=== PATIENT | female | born 1955 | race American Indian/Alaskan Native ===

== ENCOUNTER 2016-10-21 16:35 | Inpatient (IN) | payer MEDICAID ==
--- NOTE | 2016-10-21 17:34 | Emergency Department Report ---
Chief Complaint: Extremity Problem,Nontraumatic Stated Complaint: GENERAL WEAKNESS - HPI History of Present Illness: Patient here with multiple complaints including b/l leg pain x 8 weeks, seeing things that are not there. Patient is resident of unknown personal halfway. - Exam Vital Signs: Vital Signs 10/21/16 17:06 Temperature 99.5 F Pulse Rate 105 H Respiratory 20 Rate Blood Pressure 112/64 O2 Sat by Pulse 95 Oximetry Physical Exam: General: Slow to respond to questions. NAD. MSE screening note: Focused history and physical exam performed. Due to findings the following was ordered: ED Medical Decision Making - Medical Decision Making Patient to see MD in main ED. ED Disposition for MSE Condition: Stable
[2016-10-21 18:35] LABS: Basophils % (Auto) 0.7 % (0.0-1.8); Hematocrit 40.1 % (30.3-42.9); Hemoglobin 13.2 gm/dl (10.1-14.3); Mean Corpuscular HGB Conc 33 % (30-34); Mean Corpuscular Hemoglobin 31 pg (28-32); Mean Corpuscular Volume 93 fl (79-97); Platelet Count 134 K/mm3 (140-440); Red Blood Count 4.29 M/mm3 (3.65-5.03); Red Cell Distribution Width 13.7 % (13.2-15.2); White Blood Count 6.2 K/mm3 (4.5-11.0)
[2016-10-21 19:13] LABS: Alanine Aminotransferase 19 units/L (7-56); Albumin 3.7 g/dL (3.9-5); Albumin/Globulin Ratio 0.9 %; Alkaline Phosphatase 60 units/L (35-129); Bilirubin,Total 0.3 mg/dL (0.1-1.2); Blood Urea Nitrogen 9 mg/dL (7-17); Carbon Dioxide 25 mmol/L (22-30); Chloride 92.1 mmol/L (98-107); Glucose 148 mg/dL (65-100); Magnesium 2.2 mg/dL (1.7-2.3); Potassium 4.1 mmol/L (3.6-5.0); Sodium 133 mmol/L (137-145); Total Protein 7.9 g/dL (6.3-8.2)
[2016-10-21 19:16] LABS: Anion Gap 20 mmol/L
[2016-10-21 19:17] LABS: Valproate 94.1 ug/mL (50-100)
[2016-10-21 19:21] LABS: Salicylate < 0.3 mg/dL (2.8-20.0)
[2016-10-22] MEDS ORDERED: NACL 0.9% 1000 ML 1,000 ML IV ONE ×2 (02:31→04:15)
--- NOTE | 2016-10-22 03:56 | Emergency Department Report ---
HPI - General Chief Complaint: Extremity Problem,Nontraumatic Time Seen by Provider: 10/22/16 02:29 - HPI HPI: Room 5 The patient is a 60-year-old female presenting with a chief complaint of depression. The patient states she had suicidal ideation 1 month ago. Patient denies auditory or visual hallucinations. The patient has a flat affect and does not offer much information by way of history. Patient does not answer all questions. Patient does admit some occasional cough Location: Mental state Duration: 1 month Quality: Depression Severity: Moderate Modifying factors: [see above] Context: [see above] Mode of transportation: [not driving] ED Past Medical Hx - Past Medical History Hx Diabetes: Yes Hx Psychiatric Treatment: Yes (SCHIZOPHRENIA) Hx Asthma: Yes Additional medical history: HYPOTHYROIDISM. HIGH CHOLESTEROL - Family History Family history: no significant - Social History Smoking Status: Never Smoker Substance Use Type: None - Medications Home Medications: Home Medications Medication Instructions Recorded Confirmed Last Taken Type Aspirin [Aspirin BABY CHEW TAB] 81 mg PO QDAY 11/22/15 11/22/15 Unknown History Benztropine [Cogentin] 1 mg PO BID 11/22/15 11/22/15 Unknown History Divalproex [Depakote Dr] 1,000 mg PO QHS 11/22/15 11/22/15 Unknown History Docusate Sodium [Colace CAP] 200 mg PO BID 11/22/15 11/22/15 Unknown History Gabapentin [Neurontin] 300 mg PO QHS 11/22/15 11/22/15 Unknown History Levothyroxine [Synthroid] 75 mcg PO QAM 11/22/15 11/22/15 Unknown History Metoprolol [Lopressor TAB] 25 mg PO DAILY 11/22/15 11/22/15 Unknown History Simvastatin [Zocor TAB] 10 mg PO QHS 11/22/15 11/22/15 Unknown History risperiDONE [RisperDAL] 4 mg PO BID 11/22/15 11/22/15 Unknown History traZODone [Desyrel] 50 mg PO QHS PRN 11/22/15 11/22/15 Unknown History Levofloxacin [Levaquin TAB] 500 mg PO QDAY #7 tablet 10/22/16 Unknown Rx ED Review of Systems ROS: Stated complaint: GENERAL WEAKNESS Other details as noted in HPI Comment: Unobtainable due to pts medical conditions Psychiatric: depression Physical Exam - Physical Exam Vital Signs: Vital Signs 10/21/16 10/22/16 17:06 02:15 Temperature 99.5 F 101.0 F H Pulse Rate 105 H 94 H Respiratory 20 20 Rate Blood Pressure 112/64 Blood Pressure 118/75 [Left] O2 Sat by Pulse 95 97 Oximetry Physical Exam: GENERAL: The patient is well-developed well-nourished female lying on stretcher with flat affect not appearing to be in acute distress. [] HEENT: Normocephalic. Atraumatic. Extraocular motions are intact. Patient has moist mucous membranes. NECK: Supple. No meningitic signs are noted. Trachea midline CHEST/LUNGS: Clear to auscultation. There is no respiratory distress noted. HEART/CARDIOVASCULAR: Regular. There is no tachycardia. There is no gallop rub or murmur. ABDOMEN: Abdomen is soft, nontender. Patient has normal bowel sounds. There is no abdominal distention. SKIN: There is no rash. There is no edema. There is no diaphoresis. NEURO: The patient is awake but has a flat affect. The patient is only intermittently cooperative with history. The patient has normal speech MUSCULOSKELETAL: There is no evidence of acute injury. ED Course Vital Signs 10/21/16 10/22/16 17:06 02:15 Temperature 99.5 F 101.0 F H Pulse Rate 105 H 94 H Respiratory 20 20 Rate Blood Pressure 112/64 Blood Pressure 118/75 [Left] O2 Sat by Pulse 95 97 Oximetry ED Medical Decision Making - Lab Data Result diagrams: 10/21/16 18:00 10/21/16 18:00 Laboratory Tests 10/21/16 10/21/16 10/21/16 17:00 18:00 18:00 WBC 6.2 RBC 4.29 Hgb 13.2 Hct 40.1 MCV 93 MCH 31 MCHC 33 RDW 13.7 Plt Count 134 L Lymph % (Auto) 10.8 L [place] % (Auto) 14.9 H Eos % (Auto) 0.0 Baso % (Auto) 0.7 Lymph # 0.7 L Pender # 0.9 H Eos # 0.0 Baso # 0.0 Seg Neutrophils % 73.6 H Seg Neutrophils # 4.5 Sodium 133 L Potassium 4.1 Chloride 92.1 L Carbon Dioxide 25 Anion Gap 20 BUN 9 Creatinine 0.9 Estimated GFR > 60 BUN/Creatinine Ratio 10.00 Glucose 148 H POC Glucose 159 H Lactic Acid Calcium 8.0 L Magnesium 2.2 Total Bilirubin 0.3 AST 100 H ALT 19 Alkaline Phosphatase 60 Total Protein 7.9 Albumin 3.7 L Albumin/Globulin Ratio 0.9 TSH Urine Color Urine Turbidity Urine pH Ur Specific [place] Urine Protein Urine Glucose (UA) Urine Ketones Urine Blood Urine Nitrite Urine Bilirubin Urine Urobilinogen Ur Leukocyte Esterase Urine WBC (Auto) Urine RBC (Auto) U Epithel Cells (Auto) Urine Bacteria (Auto) Urine WBC Clumps Urine Mucus Salicylates Urine Opiates Screen Urine Methadone Screen Acetaminophen Ur Barbiturates Screen Valproic Acid Ur Phencyclidine Scrn Ur Amphetamines Screen U Benzodiazepines Scrn Urine Cocaine Screen U Marijuana (THC) Screen Drugs of Abuse Note Plasma/Serum Alcohol 10/21/16 10/21/16 10/21/16 18:00 18:00 18:00 WBC RBC Hgb Hct MCV MCH MCHC RDW Plt Count Lymph % (Auto) P[place] % (Auto) Eos % (Auto) Baso % (Auto) Lymph # P[place] # Eos # Baso # Seg Neutrophils % Seg Neutrophils # Sodium Potassium Chloride Carbon Dioxide Anion Gap BUN Creatinine Estimated GFR BUN/Creatinine Ratio Glucose POC Glucose Lactic Acid 2.8 H* Calcium Magnesium Total Bilirubin AST ALT Alkaline Phosphatase Total Protein Albumin Albumin/Globulin Ratio TSH 2.960 Urine Color Urine Turbidity Urine pH Ur Specific [place] Urine Protein Urine Glucose (UA) Urine Ketones Urine Blood Urine Nitrite Urine Bilirubin Urine Urobilinogen Ur Leukocyte Esterase Urine WBC (Auto) Urine RBC (Auto) U Epithel Cells (Auto) Urine Bacteria (Auto) Urine WBC Clumps Urine Mucus Salicylates < 0.3 L Urine Opiates Screen Urine Methadone Screen Acetaminophen Ur Barbiturates Screen Valproic Acid 94.1 Ur Phencyclidine Scrn Ur Amphetamines Screen U Benzodiazepines Scrn Urine Cocaine Screen U Marijuana (THC) Screen Drugs of Abuse Note Plasma/Serum Alcohol 10/21/16 10/21/16 10/21/16 18:00 18:00 20:10 WBC RBC Hgb Hct MCV MCH MCHC RDW Plt Count Lymph % (Auto) [place] % (Auto) Eos % (Auto) Baso % (Auto) Lymph # [place] # Eos # Baso # Seg Neutrophils % Seg Neutrophils # Sodium Potassium Chloride Carbon Dioxide Anion Gap BUN Creatinine Estimated GFR BUN/Creatinine Ratio Glucose POC Glucose Lactic Acid 2.6 H* Calcium Magnesium Total Bilirubin AST ALT Alkaline Phosphatase Total Protein Albumin Albumin/Globulin Ratio TSH Urine Color Urine Turbidity Urine pH Ur Specific [place] Urine Protein Urine Glucose (UA) Urine Ketones Urine Blood Urine Nitrite Urine Bilirubin Urine Urobilinogen Ur Leukocyte Esterase Urine WBC (Auto) Urine RBC (Auto) U Epithel Cells (Auto) Urine Bacteria (Auto) Urine WBC Clumps Urine Mucus Salicylates Urine Opiates Screen Urine Methadone Screen Acetaminophen < 15.0 Ur Barbiturates Screen Valproic Acid Ur Phencyclidine Scrn Ur Amphetamines Screen U Benzodiazepines Scrn Urine Cocaine Screen U Marijuana (THC) Screen Drugs of Abuse Note Plasma/Serum Alcohol < 0.01 10/22/16 10/22/16 10/22/16 04:21 04:21 04:47 WBC RBC Hgb Hct MCV MCH MCHC RDW Plt Count Lymph % (Auto) [place] % (Auto) Eos % (Auto) Baso % (Auto) Lymph # [place] # Eos # Baso # Seg Neutrophils % Seg Neutrophils # Sodium Potassium Chloride Carbon Dioxide Anion Gap BUN Creatinine Estimated GFR BUN/Creatinine Ratio Glucose POC Glucose Lactic Acid 1.4 Calcium Magnesium Total Bilirubin AST ALT Alkaline Phosphatase Total Protein Albumin Albumin/Globulin Ratio TSH Urine Color Steffanie Urine Turbidity Clear Urine pH 6.0 Ur Specific [place] 1.019 Urine Protein 100 mg/dl Urine Glucose (UA) Neg Urine Ketones Tr Urine Blood Lg Urine Nitrite Neg Urine Bilirubin Neg Urine Urobilinogen 2.0 Ur Leukocyte Esterase Neg Urine WBC (Auto) 27.0 H Urine RBC (Auto) 18.0 U Epithel Cells (Auto) 4.0 Urine Bacteria (Auto) 1+ Urine WBC Clumps 2+ Urine Mucus Few Salicylates Urine Opiates Screen Presumptive negative Urine Methadone Screen Presumptive negative Acetaminophen Ur Barbiturates Screen Presumptive negative Valproic Acid Ur Phencyclidine Scrn Presumptive negative Ur Amphetamines Screen Presumptive negative U Benzodiazepines Scrn Presumptive negative Urine Cocaine Screen Presumptive negative U Marijuana (THC) Screen Presumptive negative Drugs of Abuse Note Disclamer Plasma/Serum Alcohol - Radiology Data Radiology results: image reviewed (chest x-ray) interpreted by me: Chest [id number] slightly rotated. Questionable right lower lobe infiltrate/ atelectasis. - Differential Diagnosis schizophrenia, pneumonia, UTI Critical care attestation.: If time is entered above; I have spent that time in minutes in the direct care of this critically ill patient, excluding procedure time. ED Disposition Clinical Impression: Schizophrenia, Suicidal ideation, UTI (urinary tract infection), Atelectasis of right lung, Fever Disposition: DC/TX PSY HOSP/PSY UNIT Is pt being admited?: No Does the pt Need Aspirin: No Condition: Fair Prescriptions: Levofloxacin [Levaquin TAB] 500 mg PO QDAY #7 tablet Time of Disposition: 05:39 (awaiting acceptance)
[2016-10-22 04:26] LABS: Urine Drugs of Abuse Note Disclamer
[2016-10-22 04:36] LABS: Bacteria,Urine 1+ /HPF (Negative); Bilirubin,Urine NEG (Negative); Blood,Urine LG (Negative); Ketones,Urine TR mg/dL (Negative); Leukocyte Esterase,Urine NEG (Negative); Mucus,Urine FEW /HPF; Nitrite,Urine NEG (Negative)
[2016-10-22] MEDS ORDERED: BACTRIM DS PO ONE (04:42)
--- NOTE | 2016-10-22 08:11 | XRay Report ---
AP chest x-ray. Findings: The patient is rotated to the left. The heart and pulmonary vessels appear normal. The lungs are clear. There is no pleural fluid. Post CABG changes are noted. Impression: No acute findings.
[2016-10-22] MEDS: LEVAQUIN PO SCH (10:47)
[2016-10-22] MEDS ORDERED: DUONEB 0.5 MG-3 MG/3 ML SOLN IH ONE (12:32)
--- NOTE | 2016-10-22 15:20 | Emergency Department Report ---
Blank Doc - Documentation Documentation: I was asked by nursing staff to reevaluate patient due to concerns of generalized weakness and mental health concerned that patient would not be able to be placed due to medical condition. Patient does have generalized weakness. [facility] and typically is able to take care of herself she is now currently too weak to stand. Mild hypoxia noted at rest with a sat of 88-90%. Mild expiratory wheezing was noted there. Neb treatment and Ordered a CT angiogram at 12:30p. As of 3:19 PM I am still waiting CT angiogram to be performed. Added urine culture. Discussed case with the admitting doctor Dr. Soto who has agreed to bring patient into the hospital. Ct angio Pending at disposition. Pt is a 1013 Diagnoses: UTI, generalized weakness, psychosis, mild hyponatremia
--- NOTE | 2016-10-22 15:53 | Admit Criteria Form ---
Admission Criteria Documentation: URINARY COMPLICATIONS Clinical Indications for Inpatient Care (Place 'X' for any and all applicable criteria): Ongoing inpatient care may be indicated for urinary complications with ANY ONE of the following: [X ]I. Urinary tract infection requiring inpatient care as indicated by ANY ONE of the following(8)(19)(20): [ ]a) Severe symptoms (eg, high fever, severe pain) [ ]b) Vomiting or dehydration requiring ongoing inpatient care [ X]c) IV antibiotic needs that cannot be managed at lower level of care [ ]d) Hemodynamic instability [ ]e) Obstruction of collecting system by stone or tumor [ ]II. Urinary retention requiring drainage or surgery (3)(4)(5)(17)(18) [ ]III. Renal failure (Use Renal Failure Criteria for further information.) [ ]IV. Oliguria(30) [ ]V. Post obstructive diuresis requiring close monitoring of urine output and intravenous compensation for excessive fluid losses(33) Extended stay beyond goal length of stay for primary condition may be needed until ALL of the following are present(3)(4)(5)(8): [ ]a) Renal function (creatinine) at baseline, or daily decreases in creatinine consistent with renal function return [ ]b) Voiding adequately or with urinary catheter or percutaneous suprapubic tube and management regimen in place that is performable at lower level of care. [ ]c) Urine output adequate [ ]d) Fever absent or resolving [ ]e) Infection absent or treatable at next level of care The original [employer] content created by [employer] has been revised. The portions of the content which have been revised are identified through the use of italic text or in bold, and [facility] has neither reviewed nor approved the modified material. All other unmodified content is copyright [employer] Please see references footnoted in the original [employer] edition 2016 Admission Criteria Met: Yes
[2016-10-22] MEDS ORDERED: NACL ONE (15:58)
--- NOTE | 2016-10-22 17:41 | Cat Scan Report ---
FINAL REPORT EXAM: CT ANGIO CHEST HISTORY: mild hypoxia, sob TECHNIQUE: Serial axial images through the chest during intravenous administration contrast with coronal, sagittal and oblique reconstruction PRIORS: None. FINDINGS: Areas of increased airspace opacity are seen in the peripheral margins of the upper lobes, bilaterally. This is seen to a lesser extent in the right middle lobe. There is patchy opacity in the lateral aspect of right lower lobe. There is mild atelectasis in the dependent portion of the left lung. No pleural effusion is seen. The heart measures approximately 13.7 centimeters in length. Sternotomy wires and surgical clips are noted. No mediastinal adenopathy is identified. Calcified lymph node is noted in the left hilum. No abnormal filling defects are identified in the pulmonary arteries. Calcified granulomata are seen in the spleen. Degenerative changes are seen in the spine. IMPRESSION: 1. No definite acute pulmonary embolism is identified. 2. Areas of increased airspace opacity are seen in the lungs, bilaterally. In the upper lobes and right middle lobe, there is a peripheral distribution. This may be secondary to infection. Differential diagnosis would include eosinophilic pneumonia and cryptogenic organizing pneumonia.
--- NOTE | 2016-10-23 03:09 | Event Note ---
Date: 10/22/16 Severe debility Pneumonia Resp failure UTI Depression
[2016-10-23 06:14] LABS: Alanine Aminotransferase 108 units/L (7-56); Albumin 2.9 g/dL (3.9-5); Albumin/Globulin Ratio 0.8 %; Alkaline Phosphatase 43 units/L (35-129); Anion Gap 16 mmol/L; BUN/Creatinine Ratio 13.33; Bilirubin,Total 0.3 mg/dL (0.1-1.2); Blood Urea Nitrogen 8 mg/dL (7-17); Calcium 7.9 mg/dL (8.4-10.2); Carbon Dioxide 25 mmol/L (22-30); Chloride 99.9 mmol/L (98-107); Glucose 113 mg/dL (65-100); Potassium 3.9 mmol/L (3.6-5.0); Sodium 137 mmol/L (137-145); Total Protein 6.5 g/dL (6.3-8.2)
--- NOTE | 2016-10-23 07:40 | History and Physical Report ---
CHIEF COMPLAINT: Severe weakness and inability to walk. HISTORY OF PRESENT ILLNESS: A 60-year-old female presented to the ER yesterday on 10/21/2016, and chief complaint was depression. The patient has had a flat affect. After the workup in the ER, the patient started saying that she is unable to walk and get up from the bed. ED staff unable to make the patient walk. The patient has some cough present. PAST MEDICAL HISTORY: Significant for diabetes, schizophrenia, depression, hypothyroidism, high cholesterol. Additional past medical history significant for hyperlipidemia, and peripheral neuropathy. FAMILY HISTORY: No significant family history. SOCIAL HISTORY: Does not smoke. No alcohol. No recreational drugs. REVIEW OF SYSTEMS: Significant for; CONSTITUTIONAL: No weight loss, no weight gain. HEENT: No sore throat, no postnasal drip. CARDIOVASCULAR AND RESPIRATORY SYSTEMS: No shortness of breath, no chest pain, no palpitations. GASTROINTESTINAL: No nausea, no vomiting, no diarrhea. MUSCULOSKELETAL: Severely weak in both the lower extremities. Unable to get up and walk. CENTRAL NERVOUS SYSTEM: No syncope, no seizures, no recent strokes. SKIN: No rashes. ENDOCRINE: No increased cold intolerance or heat intolerance. INTEGUMENTARY: No rash, no oral ulcers. ALLERGIES/IMMUNOLOGIC SYSTEMS: No wheezing or allergic reaction or urticaria. PHYSICAL EXAMINATION: GENERAL: On examination, elderly female, cooperative during examination. VITAL SIGNS: Blood pressure is 155/78, pulse is 90, respirations 20, sats are 93%. HEENT: Unremarkable. Pupils equal and reactive. NECK: Supple, no lymphadenopathy, no thyromegaly. LUNGS: Clear to auscultation and percussion. Scattered rales bilaterally. CARDIOVASCULAR: S1, S2 heard. No gallop, no murmur, no rub. Apical impulse in left fifth intercostal space and midclavicular line. ABDOMEN: Soft and benign. No hepatosplenomegaly. No guarding, no rigidity. Hernial orifices are normal. EXTREMITIES: Good pedal pulses. No pedal edema. CENTRAL NERVOUS SYSTEM: Alert and oriented x 4. NEUROLOGIC: Nonfocal exam. LABORATORY DATA: White count is 6200, H and H is 13.2 and 40.1, platelet count is 134,000. Lactic acid is 2.6 and 1.4. Sodium is 133, potassium is 4.1, chloride is 92.1, BUN and creatinine is 9 and 0.9. UA shows [address] angiogram shows bilateral patchy opacities. ASSESSMENT AND PLAN: 1. Acute respiratory failure, secondary to bilateral patchy opacities and pneumonia. The patient was started on IV Rocephin and IV Zithromax. 2. Bilateral pneumonia. The patient was started on IV Zithromax and IV Rocephin. 3. Urinary tract infection. Continue Rocephin. 4. Severe debility. Physical therapy evaluation is requested. 5. Depression and schizophrenia. Mental health evaluation requested. 6. Hypertension. Continue metoprolol 25 mg daily. 7. Hypothyroidism. Continue levothyroxine 75 mcg daily. 8. Hyperlipidemia. We will hold the simvastatin because of the generalized weakness in the muscles. Myopathies a possibility. 9. Deep venous thrombosis prophylaxis, Lovenox 40 mg subcutaneous daily. JOB# [id number] VSM/NTS
[2016-10-23] MEDS: SYNTHROID PO SCH (07:42)
[2016-10-23] MEDS: COGENTIN PO SCH ×2 (10:00→23:38)
[2016-10-23] MEDS: ZITHROMAX 500 MG in NACL 0.9% 250ML 250 ML IV SCH (10:00)
[2016-10-23] MEDS: LOVENOX SUB-Q SCH (10:00)
[2016-10-23] MEDS: LEVAQUIN PO SCH (10:00)
[2016-10-23] MEDS ORDERED: ROCEPHIN 2,000 MG in NACL 0.9% 50 ML IV SCH (10:00)
[2016-10-23] MEDS: COLACE PO SCH ×2 (10:00→23:37)
[2016-10-23] MEDS: BABY ASPIRIN PO SCH (10:00)
[2016-10-23] MEDS: ROCEPHIN/NS 2 GM/100 ML 100 ML IV SCH (11:00)
--- NOTE | 2016-10-23 15:29 | Progress Note ---
Assessment and Plan Assessment and plan: Acute respiratory failure due to bilateral pneumonia, resolved Bilateral pneumonia likely community-acquired Urinary tract infections Physical debility History of schizophrenia and depression Hypertension, benign essential History of hypothyroidism Hyperlipidemia Plan: Monitor the patient at medicine Continue antibiotics, wait for PT eval Resume home meds and follow psychiatric recommendations Continue GI and DVT prophylaxis History Interval history: Patient seen and examined. Medical records and medication list reviewed. No acute event overnight noted by the RN. Patient complains that she is unable to move her bilateral lower extremities, she has significant difficulty in ambulation PT eval is pending, psych eval also pending. Discussed plan of care at bedside with patient. Hospitalist Physical - Physical exam Narrative exam: GENERAL: well-developed morbidly female lying on bed appeared to be in no discomfort. HEENT: Normocephalic. Atraumatic. No conjunctival congestion or icterus. Patient has moist mucous membranes. NECK: Supple. Trachea midline. CHEST/LUNGS: Clear to auscultated bilaterally, breathing nonlabored. No wheezes crackles or rhonchi. HEART/CARDIOVASCULAR: Regular in rate and rhythm. S1 and S2 positive. ABDOMEN: Abdomen is soft, nontender. Patient has normal bowel sounds. SKIN: There is no rash. Warm and dry. NEURO: Follows command. Does not smoke nor extremities MUSCULOSKELETAL: No joint effusion or tenderness. EXTRIMITY: No edema, no cyanosis or clubbing. PSYCH: Disorganized thought processes. - Constitutional Vitals: Temp Pulse Resp BP Pulse Ox 98.6 F 78 18 116/61 95 10/23/16 08:00 10/23/16 08:00 10/23/16 08:00 10/23/16 08:00 10/23/16 08:00 Results - Labs CBC & Chem 7: 10/21/16 18:00 10/23/16 05:34 Labs: Laboratory Last Values WBC 6.2 K/mm3 (4.5-11.0) 10/21/16 18:00 RBC 4.29 M/mm3 (3.65-5.03) 10/21/16 18:00 Hgb 13.2 gm/dl (10.1-14.3) 10/21/16 18:00 Hct 40.1 % (30.3-42.9) 10/21/16 18:00 MCV 93 fl (79-97) 10/21/16 18:00 MCH 31 pg (28-32) 10/21/16 18:00 MCHC 33 % (30-34) 10/21/16 18:00 RDW 13.7 % (13.2-15.2) 10/21/16 18:00 Plt Count 134 K/mm3 (140-440) L 10/21/16 18:00 Lymph % (Auto) 10.8 % (13.4-35.0) L 10/21/16 18:00 [place] % (Auto) 14.9 % (0.0-7.3) H 10/21/16 18:00 Eos % (Auto) 0.0 % (0.0-4.3) 10/21/16 18:00 Baso % (Auto) 0.7 % (0.0-1.8) 10/21/16 18:00 Lymph # 0.7 K/mm3 (1.2-5.4) L 10/21/16 18:00 [place] # 0.9 K/mm3 (0.0-0.8) H 10/21/16 18:00 Eos # 0.0 K/mm3 (0.0-0.4) 10/21/16 18:00 Baso # 0.0 K/mm3 (0.0-0.1) 10/21/16 18:00 Seg Neutrophils % 73.6 % (40.0-70.0) H 10/21/16 18:00 Seg Neutrophils # 4.5 K/mm3 (1.8-7.7) 10/21/16 18:00 Sodium 137 mmol/L (137-145) 10/23/16 05:34 Potassium 3.9 mmol/L (3.6-5.0) 10/23/16 05:34 Chloride 99.9 mmol/L (98-107) 10/23/16 05:34 Carbon Dioxide 25 mmol/L (22-30) 10/23/16 05:34 Anion Gap 16 mmol/L 10/23/16 05:34 BUN 8 mg/dL (7-17) 10/23/16 05:34 Creatinine 0.6 mg/dL (0.7-1.2) L 10/23/16 05:34 Estimated GFR > 60 ml/min 10/23/16 05:34 BUN/Creatinine Ratio 13.33 % 10/23/16 05:34 Glucose 113 mg/dL (65-100) H 10/23/16 05:34 POC Glucose 98 (70-105) 10/23/16 11:53 Lactic Acid 1.4 mmol/L (0.7-2.0) 10/22/16 04:47 Calcium 7.9 mg/dL (8.4-10.2) L 10/23/16 05:34 Magnesium 2.2 mg/dL (1.7-2.3) 10/21/16 18:00 Total Bilirubin 0.3 mg/dL (0.1-1.2) 10/23/16 05:34 AST 627 units/L (5-40) H 10/23/16 05:34 ALT 108 units/L (7-56) H 10/23/16 05:34 Alkaline Phosphatase 43 units/L (35-129) 10/23/16 05:34 Total Protein 6.5 g/dL (6.3-8.2) 10/23/16 05:34 Albumin 2.9 g/dL (3.9-5) L 10/23/16 05:34 Albumin/Globulin Ratio 0.8 % 10/23/16 05:34 TSH 2.960 mlU/mL (0.270-4.200) 10/21/16 18:00 Urine Color Steffanie (Yellow) 10/22/16 04:21 Urine Turbidity Clear (Clear) 10/22/16 04:21 Urine pH 6.0 (5.0-7.0) 10/22/16 04:21 Ur Specific [place] 1.019 (1.003-1.030) 10/22/16 04:21 Urine Protein 100 mg/dl mg/dL (Negative) 10/22/16 04:21 Urine Glucose (UA) Neg mg/dL (Negative) 10/22/16 04:21 Urine Ketones Tr mg/dL (Negative) 10/22/16 04:21 Urine Blood Lg (Negative) 10/22/16 04:21 Urine Nitrite Neg (Negative) 10/22/16 04:21 Urine Bilirubin Neg (Negative) 10/22/16 04:21 Urine Urobilinogen 2.0 mg/dL (<2.0) 10/22/16 04:21 Ur Leukocyte Esterase Neg (Negative) 10/22/16 04:21 Urine WBC (Auto) 27.0 /HPF (0.0-6.0) H 10/22/16 04:21 Urine RBC (Auto) 18.0 /HPF (0.0-6.0) 10/22/16 04:21 U Epithel Cells (Auto) 4.0 /HPF (0-13.0) 10/22/16 04:21 Urine Bacteria (Auto) 1+ /HPF (Negative) 10/22/16 04:21 Urine WBC Clumps 2+ /HPF 10/22/16 04:21 Urine Mucus Few /HPF 10/22/16 04:21 Salicylates < 0.3 mg/dL (2.8-20.0) L 10/21/16 18:00 Urine Opiates Screen Presumptive negative 10/22/16 04:21 Urine Methadone Screen Presumptive negative 10/22/16 04:21 Acetaminophen < 15.0 ug/mL (10.0-30.0) 10/21/16 18:00 Ur Barbiturates Screen Presumptive negative 10/22/16 04:21 Valproic Acid 94.1 ug/mL (50-100) 10/21/16 18:00 Ur Phencyclidine Scrn Presumptive negative 10/22/16 04:21 Ur Amphetamines Screen Presumptive negative 10/22/16 04:21 U Benzodiazepines Scrn Presumptive negative 10/22/16 04:21 Urine Cocaine Screen Presumptive negative 10/22/16 04:21 U Marijuana (THC) Screen Presumptive negative 10/22/16 04:21 Drugs of Abuse Note Disclamer 10/22/16 04:21 Plasma/Serum Alcohol < 0.01 gm% (0-0.07) 10/21/16 18:00
[2016-10-23] MEDS: ZOCOR PO SCH (23:38)
[2016-10-24] MEDS: SYNTHROID PO SCH (08:07)
[2016-10-24] MEDS: BABY ASPIRIN PO SCH (12:04)
[2016-10-24] MEDS: LEVAQUIN PO SCH (12:04)
[2016-10-24] MEDS: COGENTIN PO SCH (12:04)
[2016-10-24] MEDS: LOVENOX SUB-Q SCH (12:04)
[2016-10-24] MEDS: COLACE PO SCH (12:04)
[2016-10-24] MEDS: ZITHROMAX 500 MG in NACL 0.9% 250ML 250 ML IV SCH (12:09)
--- NOTE | 2016-10-24 15:10 | Progress Note ---
Assessment and Plan Assessment and plan: Acute respiratory failure due to bilateral pneumonia, resolved Bilateral pneumonia likely community-acquired Urinary tract infections Physical debility History of schizophrenia and depression Hypertension, benign essential History of hypothyroidism Hyperlipidemia Plan: Monitor the patient at medicine Continue antibiotics, getting PT eval, further recommendation to follow cont home meds and follow psychiatric recommendations CM consult for placement Continue GI and DVT prophylaxis History Interval history: Patient seen and examined. Medical records and medication list reviewed. No acute event overnight noted by the RN. Patient complains that she is unable to move her bilateral lower extremities, she has significant difficulty in ambulation Psych eval is pending, noticed PT eval Discussed plan of care at bedside with patient. Hospitalist Physical - Physical exam Narrative exam: GENERAL: well-developed morbidly female lying on bed appeared to be in no discomfort. HEENT: Normocephalic. Atraumatic. No conjunctival congestion or icterus. Patient has moist mucous membranes. NECK: Supple. Trachea midline. CHEST/LUNGS: Clear to auscultated bilaterally, breathing nonlabored. No wheezes crackles or rhonchi. HEART/CARDIOVASCULAR: Regular in rate and rhythm. S1 and S2 positive. ABDOMEN: Abdomen is soft, nontender. Patient has normal bowel sounds. SKIN: There is no rash. Warm and dry. NEURO: Follows command. Does not move her extremities MUSCULOSKELETAL: No joint effusion or tenderness. EXTRIMITY: No edema, no cyanosis or clubbing. PSYCH: Disorganized thought processes. - Constitutional Vitals: Temp Pulse Resp BP Pulse Ox 97.9 F 74 16 116/82 97 10/24/16 08:24 10/24/16 08:24 10/24/16 08:24 10/24/16 08:24 10/24/16 08:24 Results - Labs CBC & Chem 7: 10/21/16 18:00 10/23/16 05:34 Labs: Laboratory Last Values WBC 6.2 K/mm3 (4.5-11.0) 10/21/16 18:00 RBC 4.29 M/mm3 (3.65-5.03) 10/21/16 18:00 Hgb 13.2 gm/dl (10.1-14.3) 10/21/16 18:00 Hct 40.1 % (30.3-42.9) 10/21/16 18:00 MCV 93 fl (79-97) 10/21/16 18:00 MCH 31 pg (28-32) 10/21/16 18:00 MCHC 33 % (30-34) 10/21/16 18:00 RDW 13.7 % (13.2-15.2) 10/21/16 18:00 Plt Count 134 K/mm3 (140-440) L 10/21/16 18:00 Lymph % (Auto) 10.8 % (13.4-35.0) L 10/21/16 18:00 [place] % (Auto) 14.9 % (0.0-7.3) H 10/21/16 18:00 Eos % (Auto) 0.0 % (0.0-4.3) 10/21/16 18:00 Baso % (Auto) 0.7 % (0.0-1.8) 10/21/16 18:00 Lymph # 0.7 K/mm3 (1.2-5.4) L 10/21/16 18:00 [place] # 0.9 K/mm3 (0.0-0.8) H 10/21/16 18:00 Eos # 0.0 K/mm3 (0.0-0.4) 10/21/16 18:00 Baso # 0.0 K/mm3 (0.0-0.1) 10/21/16 18:00 Seg Neutrophils % 73.6 % (40.0-70.0) H 10/21/16 18:00 Seg Neutrophils # 4.5 K/mm3 (1.8-7.7) 10/21/16 18:00 Sodium 137 mmol/L (137-145) 10/23/16 05:34 Potassium 3.9 mmol/L (3.6-5.0) 10/23/16 05:34 Chloride 99.9 mmol/L (98-107) 10/23/16 05:34 Carbon Dioxide 25 mmol/L (22-30) 10/23/16 05:34 Anion Gap 16 mmol/L 10/23/16 05:34 BUN 8 mg/dL (7-17) 10/23/16 05:34 Creatinine 0.6 mg/dL (0.7-1.2) L 10/23/16 05:34 Estimated GFR > 60 ml/min 10/23/16 05:34 BUN/Creatinine Ratio 13.33 % 10/23/16 05:34 Glucose 113 mg/dL (65-100) H 10/23/16 05:34 POC Glucose 112 (70-105) H 10/24/16 07:07 Lactic Acid 1.4 mmol/L (0.7-2.0) 10/22/16 04:47 Calcium 7.9 mg/dL (8.4-10.2) L 10/23/16 05:34 Magnesium 2.2 mg/dL (1.7-2.3) 10/21/16 18:00 Total Bilirubin 0.3 mg/dL (0.1-1.2) 10/23/16 05:34 AST 627 units/L (5-40) H 10/23/16 05:34 ALT 108 units/L (7-56) H 10/23/16 05:34 Alkaline Phosphatase 43 units/L (35-129) 10/23/16 05:34 Total Protein 6.5 g/dL (6.3-8.2) 10/23/16 05:34 Albumin 2.9 g/dL (3.9-5) L 10/23/16 05:34 Albumin/Globulin Ratio 0.8 % 10/23/16 05:34 TSH 2.960 mlU/mL (0.270-4.200) 10/21/16 18:00 Urine Color Steffanie (Yellow) 10/22/16 04:21 Urine Turbidity Clear (Clear) 10/22/16 04:21 Urine pH 6.0 (5.0-7.0) 10/22/16 04:21 Ur Specific [place] 1.019 (1.003-1.030) 10/22/16 04:21 Urine Protein 100 mg/dl mg/dL (Negative) 10/22/16 04:21 Urine Glucose (UA) Neg mg/dL (Negative) 10/22/16 04:21 Urine Ketones Tr mg/dL (Negative) 10/22/16 04:21 Urine Blood Lg (Negative) 10/22/16 04:21 Urine Nitrite Neg (Negative) 10/22/16 04:21 Urine Bilirubin Neg (Negative) 10/22/16 04:21 Urine Urobilinogen 2.0 mg/dL (<2.0) 10/22/16 04:21 Ur Leukocyte Esterase Neg (Negative) 10/22/16 04:21 Urine WBC (Auto) 27.0 /HPF (0.0-6.0) H 10/22/16 04:21 Urine RBC (Auto) 18.0 /HPF (0.0-6.0) 10/22/16 04:21 U Epithel Cells (Auto) 4.0 /HPF (0-13.0) 10/22/16 04:21 Urine Bacteria (Auto) 1+ /HPF (Negative) 10/22/16 04:21 Urine WBC Clumps 2+ /HPF 10/22/16 04:21 Urine Mucus Few /HPF 10/22/16 04:21 Salicylates < 0.3 mg/dL (2.8-20.0) L 10/21/16 18:00 Urine Opiates Screen Presumptive negative 10/22/16 04:21 Urine Methadone Screen Presumptive negative 10/22/16 04:21 Acetaminophen < 15.0 ug/mL (10.0-30.0) 10/21/16 18:00 Ur Barbiturates Screen Presumptive negative 10/22/16 04:21 Valproic Acid 94.1 ug/mL (50-100) 10/21/16 18:00 Ur Phencyclidine Scrn Presumptive negative 10/22/16 04:21 Ur Amphetamines Screen Presumptive negative 10/22/16 04:21 U Benzodiazepines Scrn Presumptive negative 10/22/16 04:21 Urine Cocaine Screen Presumptive negative 10/22/16 04:21 U Marijuana (THC) Screen Presumptive negative 10/22/16 04:21 Drugs of Abuse Note Disclamer 10/22/16 04:21 Plasma/Serum Alcohol < 0.01 gm% (0-0.07) 10/21/16 18:00
[2016-10-24] MEDS: ROCEPHIN/NS 2 GM/100 ML 100 ML IV SCH (20:17)
[2016-10-25] MEDS: ZOCOR PO SCH ×2 (00:43→21:57)
[2016-10-25] MEDS: COGENTIN PO SCH ×3 (00:43→21:57)
[2016-10-25] MEDS: COLACE PO SCH ×3 (00:43→21:56)
[2016-10-25] MEDS: SYNTHROID PO SCH (05:56)
[2016-10-25] MEDS: LEVAQUIN PO SCH (11:54)
[2016-10-25] MEDS: BABY ASPIRIN PO SCH (11:55)
[2016-10-25] MEDS: LOVENOX SUB-Q SCH (11:55)
--- NOTE | 2016-10-25 15:50 | Progress Note ---
Assessment and Plan Assessment and plan: Acute respiratory failure due to bilateral pneumonia, resolved Bilateral pneumonia likely community-acquired Urinary tract infections Physical debility History of schizophrenia and depression Hypertension, benign essential History of hypothyroidism Hyperlipidemia Plan: Monitor the patient at medicine Continue antibiotics, getting PT eval, further recommendation to follow cont home meds and follow psychiatric recommendations CM consulted for placement Continue GI and DVT prophylaxis History Interval history: Patient seen and examined. Medical records and medication list reviewed. No acute event overnight noted by the RN. Patient complains that she is unable to move her bilateral lower extremities, she has significant difficulty in ambulation Psych eval is pending, noticed PT eval Discussed plan of care at bedside with patient. Hospitalist Physical - Physical exam Narrative exam: GENERAL: well-developed morbidly female lying on bed appeared to be in no discomfort. HEENT: Normocephalic. Atraumatic. No conjunctival congestion or icterus. Patient has moist mucous membranes. NECK: Supple. Trachea midline. CHEST/LUNGS: Clear to auscultated bilaterally, breathing nonlabored. No wheezes crackles or rhonchi. HEART/CARDIOVASCULAR: Regular in rate and rhythm. S1 and S2 positive. ABDOMEN: Abdomen is soft, nontender. Patient has normal bowel sounds. SKIN: There is no rash. Warm and dry. NEURO: Follows command. Does not move her extremities MUSCULOSKELETAL: No joint effusion or tenderness. EXTRIMITY: No edema, no cyanosis or clubbing. PSYCH: Disorganized thought processes. - Constitutional Vitals: Temp Pulse Resp BP Pulse Ox 97.7 F 71 16 140/74 97 10/25/16 12:30 10/25/16 12:30 10/25/16 12:30 10/25/16 12:30 10/25/16 12:30 Results - Labs CBC & Chem 7: 10/21/16 18:00 10/23/16 05:34 Labs: Laboratory Last Values WBC 6.2 K/mm3 (4.5-11.0) 10/21/16 18:00 RBC 4.29 M/mm3 (3.65-5.03) 10/21/16 18:00 Hgb 13.2 gm/dl (10.1-14.3) 10/21/16 18:00 Hct 40.1 % (30.3-42.9) 10/21/16 18:00 MCV 93 fl (79-97) 10/21/16 18:00 MCH 31 pg (28-32) 10/21/16 18:00 MCHC 33 % (30-34) 10/21/16 18:00 RDW 13.7 % (13.2-15.2) 10/21/16 18:00 Plt Count 134 K/mm3 (140-440) L 10/21/16 18:00 Lymph % (Auto) 10.8 % (13.4-35.0) L 10/21/16 18:00 [place] % (Auto) 14.9 % (0.0-7.3) H 10/21/16 18:00 Eos % (Auto) 0.0 % (0.0-4.3) 10/21/16 18:00 Baso % (Auto) 0.7 % (0.0-1.8) 10/21/16 18:00 Lymph # 0.7 K/mm3 (1.2-5.4) L 10/21/16 18:00 [place] # 0.9 K/mm3 (0.0-0.8) H 10/21/16 18:00 Eos # 0.0 K/mm3 (0.0-0.4) 10/21/16 18:00 Baso # 0.0 K/mm3 (0.0-0.1) 10/21/16 18:00 Seg Neutrophils % 73.6 % (40.0-70.0) H 10/21/16 18:00 Seg Neutrophils # 4.5 K/mm3 (1.8-7.7) 10/21/16 18:00 Sodium 137 mmol/L (137-145) 10/23/16 05:34 Potassium 3.9 mmol/L (3.6-5.0) 10/23/16 05:34 Chloride 99.9 mmol/L (98-107) 10/23/16 05:34 Carbon Dioxide 25 mmol/L (22-30) 10/23/16 05:34 Anion Gap 16 mmol/L 10/23/16 05:34 BUN 8 mg/dL (7-17) 10/23/16 05:34 Creatinine 0.6 mg/dL (0.7-1.2) L 10/23/16 05:34 Estimated GFR > 60 ml/min 10/23/16 05:34 BUN/Creatinine Ratio 13.33 % 10/23/16 05:34 Glucose 113 mg/dL (65-100) H 10/23/16 05:34 POC Glucose 95 (70-105) 10/25/16 12:04 Lactic Acid 1.4 mmol/L (0.7-2.0) 10/22/16 04:47 Calcium 7.9 mg/dL (8.4-10.2) L 10/23/16 05:34 Magnesium 2.2 mg/dL (1.7-2.3) 10/21/16 18:00 Total Bilirubin 0.3 mg/dL (0.1-1.2) 10/23/16 05:34 AST 627 units/L (5-40) H 10/23/16 05:34 ALT 108 units/L (7-56) H 10/23/16 05:34 Alkaline Phosphatase 43 units/L (35-129) 10/23/16 05:34 Total Protein 6.5 g/dL (6.3-8.2) 10/23/16 05:34 Albumin 2.9 g/dL (3.9-5) L 10/23/16 05:34 Albumin/Globulin Ratio 0.8 % 10/23/16 05:34 TSH 2.960 mlU/mL (0.270-4.200) 10/21/16 18:00 Urine Color Steffanie (Yellow) 10/22/16 04:21 Urine Turbidity Clear (Clear) 10/22/16 04:21 Urine pH 6.0 (5.0-7.0) 10/22/16 04:21 Ur Specific [place] 1.019 (1.003-1.030) 10/22/16 04:21 Urine Protein 100 mg/dl mg/dL (Negative) 10/22/16 04:21 Urine Glucose (UA) Neg mg/dL (Negative) 10/22/16 04:21 Urine Ketones Tr mg/dL (Negative) 10/22/16 04:21 Urine Blood Lg (Negative) 10/22/16 04:21 Urine Nitrite Neg (Negative) 10/22/16 04:21 Urine Bilirubin Neg (Negative) 10/22/16 04:21 Urine Urobilinogen 2.0 mg/dL (<2.0) 10/22/16 04:21 Ur Leukocyte Esterase Neg (Negative) 10/22/16 04:21 Urine WBC (Auto) 27.0 /HPF (0.0-6.0) H 10/22/16 04:21 Urine RBC (Auto) 18.0 /HPF (0.0-6.0) 10/22/16 04:21 U Epithel Cells (Auto) 4.0 /HPF (0-13.0) 10/22/16 04:21 Urine Bacteria (Auto) 1+ /HPF (Negative) 10/22/16 04:21 Urine WBC Clumps 2+ /HPF 10/22/16 04:21 Urine Mucus Few /HPF 10/22/16 04:21 Salicylates < 0.3 mg/dL (2.8-20.0) L 10/21/16 18:00 Urine Opiates Screen Presumptive negative 10/22/16 04:21 Urine Methadone Screen Presumptive negative 10/22/16 04:21 Acetaminophen < 15.0 ug/mL (10.0-30.0) 10/21/16 18:00 Ur Barbiturates Screen Presumptive negative 10/22/16 04:21 Valproic Acid 94.1 ug/mL (50-100) 10/21/16 18:00 Ur Phencyclidine Scrn Presumptive negative 10/22/16 04:21 Ur Amphetamines Screen Presumptive negative 10/22/16 04:21 U Benzodiazepines Scrn Presumptive negative 10/22/16 04:21 Urine Cocaine Screen Presumptive negative 10/22/16 04:21 U Marijuana (THC) Screen Presumptive negative 10/22/16 04:21 Drugs of Abuse Note Disclamer 10/22/16 04:21 Plasma/Serum Alcohol < 0.01 gm% (0-0.07) 10/21/16 18:00
[2016-10-26] MEDS: SYNTHROID PO SCH (05:29)
[2016-10-26] MEDS: BABY ASPIRIN PO SCH (11:24)
[2016-10-26] MEDS: COGENTIN PO SCH ×2 (11:25→21:45)
[2016-10-26] MEDS: COLACE PO SCH ×2 (11:25→21:44)
[2016-10-26] MEDS: LOVENOX SUB-Q SCH (11:26)
[2016-10-26] MEDS: LEVAQUIN PO SCH (11:26)
--- NOTE | 2016-10-26 12:40 | Progress Note ---
Assessment and Plan Assessment and plan: Acute respiratory failure due to bilateral pneumonia, resolved Bilateral pneumonia likely community-acquired Urinary tract infections Physical debility with unsteady gait History of schizophrenia and depression Hypertension, benign essential hypothyroidism with elevated TSH Hyperlipidemia Plan: Monitor the patient at medicine Continue antibiotics, Restart her home psychiatric medications Her TSH level is 12.5 Increased Synthroid dose 125 mg by mouth daily Patient noted to have unsteady gait and physical instability with physical therapy PT recommended subacute rehabilitation placement History Interval history: Patient seen and examined. Medical records and medication list reviewed. No acute event overnight noted by the RN. Discussed plan of care at bedside with patient's POA. Since admission the patient stated that she is unable to move her legs. Patient has history of schizophrenia and paranoid behavior for at least last 20 years According to POA patient is manipulative and that is part of her psychiatric problem Patient was able to move her legs while I was discussing plan of care with the POA She had repeat PT eval today and was able to ambulate but noted to have unsteady gait Hospitalist Physical - Physical exam Narrative exam: GENERAL: well-developed morbidly female lying on bed appeared to be in no discomfort. HEENT: Normocephalic. Atraumatic. No conjunctival congestion or icterus. Patient has moist mucous membranes. NECK: Supple. Trachea midline. CHEST/LUNGS: Clear to auscultated bilaterally, breathing nonlabored. No wheezes crackles or rhonchi. HEART/CARDIOVASCULAR: Regular in rate and rhythm. S1 and S2 positive. ABDOMEN: Abdomen is soft, nontender. Patient has normal bowel sounds. SKIN: There is no rash. Warm and dry. NEURO: Follows command. move her extremities MUSCULOSKELETAL: No joint effusion or tenderness. EXTRIMITY: No edema, no cyanosis or clubbing. PSYCH: Disorganized thought processes. - Constitutional Vitals: Temp Pulse Resp BP Pulse Ox 98.4 F 69 16 148/75 98 10/26/16 08:30 10/26/16 08:30 10/26/16 08:30 10/26/16 08:30 10/26/16 08:30 Results - Labs CBC & Chem 7: 10/21/16 18:00 10/23/16 05:34 Labs: Laboratory Last Values WBC 6.2 K/mm3 (4.5-11.0) 10/21/16 18:00 RBC 4.29 M/mm3 (3.65-5.03) 10/21/16 18:00 Hgb 13.2 gm/dl (10.1-14.3) 10/21/16 18:00 Hct 40.1 % (30.3-42.9) 10/21/16 18:00 MCV 93 fl (79-97) 10/21/16 18:00 MCH 31 pg (28-32) 10/21/16 18:00 MCHC 33 % (30-34) 10/21/16 18:00 RDW 13.7 % (13.2-15.2) 10/21/16 18:00 Plt Count 134 K/mm3 (140-440) L 10/21/16 18:00 Lymph % (Auto) 10.8 % (13.4-35.0) L 10/21/16 18:00 [place] % (Auto) 14.9 % (0.0-7.3) H 10/21/16 18:00 Eos % (Auto) 0.0 % (0.0-4.3) 10/21/16 18:00 Baso % (Auto) 0.7 % (0.0-1.8) 10/21/16 18:00 Lymph # 0.7 K/mm3 (1.2-5.4) L 10/21/16 18:00 [place] # 0.9 K/mm3 (0.0-0.8) H 10/21/16 18:00 Eos # 0.0 K/mm3 (0.0-0.4) 10/21/16 18:00 Baso # 0.0 K/mm3 (0.0-0.1) 10/21/16 18:00 Seg Neutrophils % 73.6 % (40.0-70.0) H 10/21/16 18:00 Seg Neutrophils # 4.5 K/mm3 (1.8-7.7) 10/21/16 18:00 Sodium 137 mmol/L (137-145) 10/23/16 05:34 Potassium 3.9 mmol/L (3.6-5.0) 10/23/16 05:34 Chloride 99.9 mmol/L (98-107) 10/23/16 05:34 Carbon Dioxide 25 mmol/L (22-30) 10/23/16 05:34 Anion Gap 16 mmol/L 10/23/16 05:34 BUN 8 mg/dL (7-17) 10/23/16 05:34 Creatinine 0.6 mg/dL (0.7-1.2) L 10/23/16 05:34 Estimated GFR > 60 ml/min 10/23/16 05:34 BUN/Creatinine Ratio 13.33 % 10/23/16 05:34 Glucose 113 mg/dL (65-100) H 10/23/16 05:34 POC Glucose 74 (70-105) 10/26/16 11:10 Lactic Acid 1.4 mmol/L (0.7-2.0) 10/22/16 04:47 Calcium 7.9 mg/dL (8.4-10.2) L 10/23/16 05:34 Magnesium 2.2 mg/dL (1.7-2.3) 10/21/16 18:00 Total Bilirubin 0.3 mg/dL (0.1-1.2) 10/23/16 05:34 AST 627 units/L (5-40) H 10/23/16 05:34 ALT 108 units/L (7-56) H 10/23/16 05:34 Alkaline Phosphatase 43 units/L (35-129) 10/23/16 05:34 Total Protein 6.5 g/dL (6.3-8.2) 10/23/16 05:34 Albumin 2.9 g/dL (3.9-5) L 10/23/16 05:34 Albumin/Globulin Ratio 0.8 % 10/23/16 05:34 TSH 2.960 mlU/mL (0.270-4.200) 10/21/16 18:00 Urine Color Steffanie (Yellow) 10/22/16 04:21 Urine Turbidity Clear (Clear) 10/22/16 04:21 Urine pH 6.0 (5.0-7.0) 10/22/16 04:21 Ur Specific [place] 1.019 (1.003-1.030) 10/22/16 04:21 Urine Protein 100 mg/dl mg/dL (Negative) 10/22/16 04:21 Urine Glucose (UA) Neg mg/dL (Negative) 10/22/16 04:21 Urine Ketones Tr mg/dL (Negative) 10/22/16 04:21 Urine Blood Lg (Negative) 10/22/16 04:21 Urine Nitrite Neg (Negative) 10/22/16 04:21 Urine Bilirubin Neg (Negative) 10/22/16 04:21 Urine Urobilinogen 2.0 mg/dL (<2.0) 10/22/16 04:21 Ur Leukocyte Esterase Neg (Negative) 10/22/16 04:21 Urine WBC (Auto) 27.0 /HPF (0.0-6.0) H 10/22/16 04:21 Urine RBC (Auto) 18.0 /HPF (0.0-6.0) 10/22/16 04:21 U Epithel Cells (Auto) 4.0 /HPF (0-13.0) 10/22/16 04:21 Urine Bacteria (Auto) 1+ /HPF (Negative) 10/22/16 04:21 Urine WBC Clumps 2+ /HPF 10/22/16 04:21 Urine Mucus Few /HPF 10/22/16 04:21 Salicylates < 0.3 mg/dL (2.8-20.0) L 10/21/16 18:00 Urine Opiates Screen Presumptive negative 10/22/16 04:21 Urine Methadone Screen Presumptive negative 10/22/16 04:21 Acetaminophen < 15.0 ug/mL (10.0-30.0) 10/21/16 18:00 Ur Barbiturates Screen Presumptive negative 10/22/16 04:21 Valproic Acid 94.1 ug/mL (50-100) 10/21/16 18:00 Ur Phencyclidine Scrn Presumptive negative 10/22/16 04:21 Ur Amphetamines Screen Presumptive negative 10/22/16 04:21 U Benzodiazepines Scrn Presumptive negative 10/22/16 04:21 Urine Cocaine Screen Presumptive negative 10/22/16 04:21 U Marijuana (THC) Screen Presumptive negative 10/22/16 04:21 Drugs of Abuse Note Disclamer 10/22/16 04:21 Plasma/Serum Alcohol < 0.01 gm% (0-0.07) 10/21/16 18:00
[2016-10-26] MEDS ORDERED: DESYREL PO PRN (14:17)
[2016-10-26] MEDS ORDERED: NON-FORMULARY (Risperidone [Risperdal] 4 MG) PO SCH (14:30)
[2016-10-26] MEDS: LOPRESSOR PO SCH (17:36)
[2016-10-26] MEDS ORDERED: SYNTHROID PO SCH (17:50)
[2016-10-26] MEDS: ZOCOR PO SCH (21:45)
[2016-10-26] MEDS ORDERED: RisperDAL PO SCH (22:00)
[2016-10-26] MEDS ORDERED: NEURONTIN PO SCH (22:00)
[2016-10-27] MEDS: LOPRESSOR PO SCH (09:16)
[2016-10-27] MEDS: LOVENOX SUB-Q SCH (09:16)
[2016-10-27] MEDS: BABY ASPIRIN PO SCH (09:16)
[2016-10-27] MEDS: LEVAQUIN PO SCH (09:16)
[2016-10-27] MEDS: COLACE PO SCH (09:16)
[2016-10-27] MEDS: COGENTIN PO SCH (09:16)
[2016-10-27] MEDS ORDERED: TYLENOL PO PRN (12:39)
--- NOTE | 2016-10-27 14:43 | Progress Note ---
Assessment and Plan Assessment and plan: Acute respiratory failure due to bilateral pneumonia - resolved Bilateral pneumonia likely community-acquired - continue levofloxacin History of multiple UTIs - last urine culture during this admission negative Hypertension, benign essential - BP controlled only on metoprolol Hypothyroidism with elevated TSH - levothyroxine dose increased Hyperlipidemia - continue statin Physical debility with unsteady gait - PT Schizophrenia and depression - on Cogentin, Depakote, Risperdal and trazodone Disposition - awaiting transfer to psych facility History Interval history: No acute events, awaiting transfer to inpatient psych Hospitalist Physical - Constitutional Vitals: Temp Pulse Resp BP Pulse Ox 98.2 F 81 16 117/59 97 10/27/16 08:00 10/27/16 08:00 10/27/16 08:00 10/27/16 08:00 10/27/16 08:00 General appearance: Present: no acute distress, obese - Neck Neck: Present: supple, normal ROM. Absent: masses or JVD - Respiratory Respiratory effort: normal Respiratory: bilateral: CTA, negative: rhonchi, wheezing - Cardiovascular Rhythm: regular Heart Sounds: Present: S1 & S2. Absent: systolic murmur - Extremities Extremities: no ischemia - Abdominal General gastrointestinal: soft, non-tender, non-distended, normal bowel sounds - Integumentary Integumentary: Present: warm, dry. Absent: jaundice, rash - Psychiatric Psychiatric: other (disorganized thought process) - Neurologic Neurologic: moves all extremities Results - Labs CBC & Chem 7: 10/21/16 18:00 10/23/16 05:34 Labs: Laboratory Last Values WBC 6.2 K/mm3 (4.5-11.0) 10/21/16 18:00 RBC 4.29 M/mm3 (3.65-5.03) 10/21/16 18:00 Hgb 13.2 gm/dl (10.1-14.3) 10/21/16 18:00 Hct 40.1 % (30.3-42.9) 10/21/16 18:00 MCV 93 fl (79-97) 10/21/16 18:00 MCH 31 pg (28-32) 10/21/16 18:00 MCHC 33 % (30-34) 10/21/16 18:00 RDW 13.7 % (13.2-15.2) 10/21/16 18:00 Plt Count 134 K/mm3 (140-440) L 10/21/16 18:00 Lymph % (Auto) 10.8 % (13.4-35.0) L 10/21/16 18:00 [place] % (Auto) 14.9 % (0.0-7.3) H 10/21/16 18:00 Eos % (Auto) 0.0 % (0.0-4.3) 10/21/16 18:00 Baso % (Auto) 0.7 % (0.0-1.8) 10/21/16 18:00 Lymph # 0.7 K/mm3 (1.2-5.4) L 10/21/16 18:00 [place] # 0.9 K/mm3 (0.0-0.8) H 10/21/16 18:00 Eos # 0.0 K/mm3 (0.0-0.4) 10/21/16 18:00 Baso # 0.0 K/mm3 (0.0-0.1) 10/21/16 18:00 Seg Neutrophils % 73.6 % (40.0-70.0) H 10/21/16 18:00 Seg Neutrophils # 4.5 K/mm3 (1.8-7.7) 10/21/16 18:00 Sodium 137 mmol/L (137-145) 10/23/16 05:34 Potassium 3.9 mmol/L (3.6-5.0) 10/23/16 05:34 Chloride 99.9 mmol/L (98-107) 10/23/16 05:34 Carbon Dioxide 25 mmol/L (22-30) 10/23/16 05:34 Anion Gap 16 mmol/L 10/23/16 05:34 BUN 8 mg/dL (7-17) 10/23/16 05:34 Creatinine 0.6 mg/dL (0.7-1.2) L 10/23/16 05:34 Estimated GFR > 60 ml/min 10/23/16 05:34 BUN/Creatinine Ratio 13.33 % 10/23/16 05:34 Glucose 113 mg/dL (65-100) H 10/23/16 05:34 POC Glucose 81 (70-105) 10/27/16 11:26 Lactic Acid 1.4 mmol/L (0.7-2.0) 10/22/16 04:47 Calcium 7.9 mg/dL (8.4-10.2) L 10/23/16 05:34 Magnesium 2.2 mg/dL (1.7-2.3) 10/21/16 18:00 Total Bilirubin 0.3 mg/dL (0.1-1.2) 10/23/16 05:34 AST 627 units/L (5-40) H 10/23/16 05:34 ALT 108 units/L (7-56) H 10/23/16 05:34 Alkaline Phosphatase 43 units/L (35-129) 10/23/16 05:34 Total Protein 6.5 g/dL (6.3-8.2) 10/23/16 05:34 Albumin 2.9 g/dL (3.9-5) L 10/23/16 05:34 Albumin/Globulin Ratio 0.8 % 10/23/16 05:34 TSH 12.730 mlU/mL (0.270-4.200) H 10/26/16 16:23 Free T4 1.04 ng/dL (0.76-1.46) 10/26/16 16:23 Urine Color Steffanie (Yellow) 10/22/16 04:21 Urine Turbidity Clear (Clear) 10/22/16 04:21 Urine pH 6.0 (5.0-7.0) 10/22/16 04:21 Ur Specific [place] 1.019 (1.003-1.030) 10/22/16 04:21 Urine Protein 100 mg/dl mg/dL (Negative) 10/22/16 04:21 Urine Glucose (UA) Neg mg/dL (Negative) 10/22/16 04:21 Urine Ketones Tr mg/dL (Negative) 10/22/16 04:21 Urine Blood Lg (Negative) 10/22/16 04:21 Urine Nitrite Neg (Negative) 10/22/16 04:21 Urine Bilirubin Neg (Negative) 10/22/16 04:21 Urine Urobilinogen 2.0 mg/dL (<2.0) 10/22/16 04:21 Ur Leukocyte Esterase Neg (Negative) 10/22/16 04:21 Urine WBC (Auto) 27.0 /HPF (0.0-6.0) H 10/22/16 04:21 Urine RBC (Auto) 18.0 /HPF (0.0-6.0) 10/22/16 04:21 U Epithel Cells (Auto) 4.0 /HPF (0-13.0) 10/22/16 04:21 Urine Bacteria (Auto) 1+ /HPF (Negative) 10/22/16 04:21 Urine WBC Clumps 2+ /HPF 10/22/16 04:21 Urine Mucus Few /HPF 10/22/16 04:21 Salicylates < 0.3 mg/dL (2.8-20.0) L 10/21/16 18:00 Urine Opiates Screen Presumptive negative 10/22/16 04:21 Urine Methadone Screen Presumptive negative 10/22/16 04:21 Acetaminophen < 15.0 ug/mL (10.0-30.0) 10/21/16 18:00 Ur Barbiturates Screen Presumptive negative 10/22/16 04:21 Valproic Acid 94.1 ug/mL (50-100) 10/21/16 18:00 Ur Phencyclidine Scrn Presumptive negative 10/22/16 04:21 Ur Amphetamines Screen Presumptive negative 10/22/16 04:21 U Benzodiazepines Scrn Presumptive negative 10/22/16 04:21 Urine Cocaine Screen Presumptive negative 10/22/16 04:21 U Marijuana (THC) Screen Presumptive negative 10/22/16 04:21 Drugs of Abuse Note Disclamer 10/22/16 04:21 Plasma/Serum Alcohol < 0.01 gm% (0-0.07) 10/21/16 18:00
--- NOTE | 2016-10-27 15:30 | Discharge Summary ---
Providers - Providers Date of Admission: 10/22/16 15:27 Date of discharge: 10/27/16 Attending physician: BOB SHIELDS 10/24/16 03:01 Physical Therapy Evaluation and Treat [CONS] Routine Comment: Reason For Exam: debility 10/24/16 10:52 Consult to Mental Health [CONS] Routine Reason For Exam: depression Place consult to:: Notified:: CARISSA Phone number called:: [phone] Was contact made?: Yes If yes, spoke with:: CARISSA Time called:: 08:34 10/25/16 09:53 Consult to Case Management [CONS] Routine Services Needed at Discharge: Other Notified:: kristin Comment:: kristin Additional Physician Instructions: placement Primary care physician: [facility] Hospitalization Reason for admission: suicidal ideation Condition: Stable Pertinent studies: Chest x-ray and chest CTA Hospital course: Patient is a 61 years old female with schizophrenia, hypertension, hyperlipidemia, hypothyroidism who was admitted for depression with suicidal ideation. She was diagnosed with pneumonia and treated accordingly. Also was noted that her TSH was elevated and levothyroxine dose adjusted. She is on multiple psych medications and is discharged to inpatient psych for further management. Discharge diagnoses: Acute respiratory failure due to bilateral pneumonia - resolved Bilateral pneumonia likely community-acquired - continue levofloxacin History of multiple UTIs - last urine culture during this admission negative Hypertension, benign essential - BP controlled only on metoprolol Hypothyroidism with elevated TSH - levothyroxine dose increased Hyperlipidemia - continue statin Physical debility with unsteady gait - PT Schizophrenia and depression - on Cogentin, Depakote, Risperdal and trazodone Disposition - transfer to psych facility Disposition: DC/TX PSY HOSP/PSY UNIT Time spent for discharge: 35 minutes Core Measure Documentation - Palliative Care Palliative Care/ Comfort Measures: Not Applicable - Core Measures Any of the following diagnoses?: none Exam - Constitutional Vitals: Temp Pulse Resp BP Pulse Ox 98.2 F 81 16 117/59 97 10/27/16 08:00 10/27/16 08:00 10/27/16 08:00 10/27/16 08:00 10/27/16 08:00 Plan Activity: advance as tolerated Diet: low cholesterol, low salt Prescriptions: Levofloxacin [Levaquin TAB] 750 mg PO Q24HR #3 tablet Levothyroxine [Synthroid] 125 mcg PO 0600 #30 tablet
[2016-10-27 17:34] VITALS: BP 158/87
== END 2016-10-27 18:36 | DRG 189 ==
LOC: ED 16:35 → 3A 10-22 15:27
PROVIDERS: ADMIT Internal Medicine; ATTEND Internal Medicine
DX: J96.01 Acute respiratory failure with hypoxia (principal); J18.9 Pneumonia, unspecified organism; N39.0 Urinary tract infection, site not specified; R45.851 Suicidal ideations; J98.11 Atelectasis; I10 Essential (primary) hypertension; F32.9 Major depressive disorder, single episode, unspecified; F20.9 Schizophrenia, unspecified; E03.9 Hypothyroidism, unspecified; E78.5 Hyperlipidemia, unspecified; F29 Unspecified psychosis not due to a substance or known physiological condition; E87.1 Hypo-osmolality and hyponatremia; E78.00 Pure hypercholesterolemia, unspecified; E11.42 Type 2 diabetes mellitus with diabetic polyneuropathy; R26.81 Unsteadiness on feet; Z87.440 Personal history of urinary (tract) infections; Z88.8 Allergy status to other drugs, medicaments and biological substances; Z88.0 Allergy status to penicillin; Z79.82 Long term (current) use of aspirin; Z79.899 Other long term (current) drug therapy
CPT/HCPCS: 36415; 71010; 71275; 80053; 80164; 80307; 80320; 81001; 82140; 82962; 83735; 84439; 84443; 85025; 87086; 93005; 93010; 96360; 96361; G0480; J0456; J0696; J1650; J7030; J7050; Q9967

== ENCOUNTER 2016-11-14 15:44 | Emergency (ER) | payer MEDICAID ==
[2016-11-14] MEDS ORDERED: COGENTIN PO ONE (17:49)
[2016-11-14] MEDS ORDERED: RisperDAL PO ONE (17:52)
[2016-11-14] MEDS ORDERED: DESYREL PO ONE (17:56)
[2016-11-14] MEDS ORDERED: DESYREL PO PRN (19:48)
--- NOTE | 2016-11-14 19:56 | Emergency Department Report ---
ED General Adult HPI - General Chief complaint: Psych Stated complaint: MH Time Seen by Provider: 11/14/16 16:43 Source: EMS Mode of arrival: Stretcher Limitations: Other - History of Present Illness Initial comments: The nurse tells me that this patient was brought in because they were hallucinating at the prison. I am told that she was dropped off by police. The nurse had the number of the prison which she calls for additional history. No one answered the phone. When I encountered this patient, she was entirely cooperative. It was clear that she was suffering from schizophrenia. However she was cooperative and responding to commands. She was not hallucinating. She did appear to have some occasional delusions. She did not have good reality testing. She stated that she really wanted to live on her own and move out of her prison. She was not agitated. She was not depressed and certainly not suicidal. She was not in any way violent. The patient has no complaints whatsoever other than she would like to live on her own. Apparently she was just placed in the prison after discharge from [facility] psychiatric inpatient status. -: unknown - Related Data Home Medications Medication Instructions Recorded Confirmed Last Taken Aspirin [Aspirin BABY CHEW TAB] 81 mg PO QDAY 11/22/15 11/14/16 Unknown Benztropine [Cogentin] 1 mg PO BID 11/22/15 11/14/16 Unknown Divalproex [Stefani Rogers] 1,000 mg PO QHS 11/22/15 11/14/16 Unknown Docusate Sodium [Colace CAP] 200 mg PO BID 11/22/15 11/14/16 Unknown Gabapentin [Neurontin] 300 mg PO QHS 11/22/15 11/14/16 Unknown Metoprolol [Lopressor TAB] 25 mg PO DAILY 11/22/15 11/14/16 Unknown Simvastatin [Zocor TAB] 10 mg PO QHS 11/22/15 11/14/16 Unknown risperiDONE [RisperDAL] 4 mg PO BID 11/22/15 11/14/16 Unknown traZODone [Desyrel] 50 mg PO QHS PRN 11/22/15 11/14/16 Unknown Previous Rx's Medication Instructions Recorded Last Taken Type Levofloxacin [Levaquin TAB] 750 mg PO Q24HR #3 tablet 10/27/16 Unknown Rx Levothyroxine [Synthroid] 125 mcg PO 0600 #30 tablet 10/27/16 Unknown Rx Allergies Allergy/AdvReac Type Severity Reaction Status Date / Time haloperidol [From Haldol] AdvReac Unknown Verified 10/22/16 04:42 haloperidol lactate AdvReac Unknown Verified 10/22/16 04:42 [From Haldol] Penicillins AdvReac Unknown Verified 10/22/16 04:42 ED Review of Systems ROS: Stated complaint: MH Other details as noted in HPI Constitutional: denies: chills, fever Eyes: denies: eye pain, eye discharge, vision change ENT: denies: ear pain, throat pain Respiratory: denies: cough, shortness of breath, wheezing Cardiovascular: denies: chest pain, palpitations Endocrine: no symptoms reported Gastrointestinal: denies: abdominal pain, nausea, diarrhea Genitourinary: denies: urgency, dysuria, discharge Musculoskeletal: denies: back pain, joint swelling, arthralgia Skin: denies: rash, lesions Neurological: denies: headache, weakness, paresthesias Psychiatric: as per HPI. denies: anxiety, depression, homicidal thoughts, suicidal thoughts Hematological/Lymphatic: denies: easy bleeding, easy bruising ED Past Medical Hx - Past Medical History Hx Diabetes: Yes Hx Psychiatric Treatment: Yes (SCHIZOPHRENIA) Hx Asthma: Yes Additional medical history: HYPOTHYROIDISM. HIGH CHOLESTEROL - Surgical History Additional Surgical History: hysterectomy - Social History Smoking Status: Never Smoker Substance Use Type: None - Medications Home Medications: Home Medications Medication Instructions Recorded Confirmed Last Taken Type Aspirin [Aspirin BABY CHEW TAB] 81 mg PO QDAY 11/22/15 11/14/16 Unknown History Benztropine [Cogentin] 1 mg PO BID 11/22/15 11/14/16 Unknown History Divalproex [Depakote Dr] 1,000 mg PO QHS 11/22/15 11/14/16 Unknown History Docusate Sodium [Colace CAP] 200 mg PO BID 11/22/15 11/14/16 Unknown History Gabapentin [Neurontin] 300 mg PO QHS 11/22/15 11/14/16 Unknown History Metoprolol [Lopressor TAB] 25 mg PO DAILY 11/22/15 11/14/16 Unknown History Simvastatin [Zocor TAB] 10 mg PO QHS 11/22/15 11/14/16 Unknown History risperiDONE [RisperDAL] 4 mg PO BID 11/22/15 11/14/16 Unknown History traZODone [Desyrel] 50 mg PO QHS PRN 11/22/15 11/14/16 Unknown History Levofloxacin [Levaquin TAB] 750 mg PO Q24HR #3 tablet 10/27/16 11/14/16 Unknown Rx Levothyroxine [Synthroid] 125 mcg PO 0600 #30 tablet 10/27/16 11/14/16 Unknown Rx ED Physical Exam - General Limitations: No Limitations General appearance: alert, in no apparent distress - Head Head exam: Present: atraumatic, normocephalic - Eye Eye exam: Present: normal appearance - ENT ENT exam: Present: mucous membranes moist - Neck Neck exam: Present: normal inspection - Respiratory Respiratory exam: Present: normal lung sounds bilaterally. Absent: respiratory distress - Cardiovascular Cardiovascular Exam: Present: regular rate, normal rhythm. Absent: systolic murmur, diastolic murmur, rubs, gallop - GI/Abdominal GI/Abdominal exam: Present: soft, normal bowel sounds. Absent: distended, tenderness, guarding, rebound, rigid - Extremities Exam Extremities exam: Present: normal inspection - Back Exam Back exam: Present: normal inspection - Neurological Exam Neurological exam: Present: alert, oriented X3, CN II-XII intact, normal gait. Absent: motor sensory deficit - Psychiatric Psychiatric exam: Present: normal affect, normal mood, other (appears to have some delusional ideation) - Skin Skin exam: Present: warm, dry, intact, normal color. Absent: rash ED Course Vital Signs 11/14/16 11/14/16 11/14/16 16:14 21:18 21:20 Temperature 99.0 F Pulse Rate 51 L 51 L 51 L Respiratory 20 Rate Blood Pressure 184/94 184/94 184/94 Blood Pressure [Left] O2 Sat by Pulse 96 Oximetry 11/14/16 11/14/16 11/15/16 23:09 23:30 03:00 Temperature Pulse Rate 72 Respiratory 20 16 16 Rate Blood Pressure Blood Pressure 148/76 [Left] O2 Sat by Pulse 96 100 100 Oximetry 11/15/16 09:12 Temperature 97.9 F Pulse Rate 97 H Respiratory 20 Rate Blood Pressure Blood Pressure 131/89 [Left] O2 Sat by Pulse 99 Oximetry - Reevaluation(s) Reevaluation #1: The patient is placed on a holding status. Medicines are continued. I then of lisinopril to her regimen as she was found to be hypertensive and I don't think 25 of metoprolol will be adequate. The charge nurse is aware of the situation. The patient is not meeting lisha [id number] criteria. She has no inclination to leave at this point. Case management will be consult. Labs are pending. 11/14/16 20:03 ED Medical Decision Making - Lab Data Result diagrams: 11/14/16 19:52 11/14/16 19:52 Laboratory Results - last 24 hr 11/14/16 11/14/16 11/14/16 19:52 19:52 19:52 WBC 6.9 RBC 3.97 Hgb 12.3 Hct 37.6 MCV 95 MCH 31 MCHC 33 RDW 14.5 Plt Count 208 Add Manual Diff Complete Total Counted 100 Seg Neutrophils % Director [employer] Seg Neuts % (Manual) 30.0 L Band Neutrophils % 2.0 Lymphocytes % (Manual) 49.0 H Reactive Lymphs % (Man) 0 Monocytes % (Manual) 14.0 H Eosinophils % (Manual) 5.0 H Basophils % (Manual) 0 Metamyelocytes % 0 Myelocytes % 0 Promyelocytes % 0 Blast Cells % 0 Nucleated RBC % Not Reportable Seg Neutrophils # Man 2.1 Band Neutrophils # 0.1 Lymphocytes # (Manual) 3.4 Abs React Lymphs (Man) 0.0 Monocytes # (Manual) 1.0 H Eosinophils # (Manual) 0.3 Basophils # (Manual) 0.0 Metamyelocytes # 0.0 Myelocytes # 0.0 Promyelocytes # 0.0 Blast Cells # 0.0 WBC Morphology Not Reportable Hypersegmented Neuts Not Reportable Hyposegmented Neuts Not Reportable Hypogranular Neuts Not Reportable Smudge Cells Not Reportable Toxic Granulation Not Reportable Toxic Vacuolation Not Reportable Dohle Bodies Not Reportable Pelger-Huet Anomaly Not Reportable Carmen Rods Not Reportable Platelet Estimate Appears normal Clumped Platelets Not Reportable Plt Clumps, EDTA Not Reportable Large Platelets Not Reportable Giant Platelets Not Reportable Platelet Satelliting Not Reportable Plt Morphology Comment Not Reportable RBC Morphology Not Reportable Dimorphic RBCs Not Reportable Polychromasia Not Reportable Hypochromasia Not Reportable Poikilocytosis Not Reportable Anisocytosis Not Reportable Microcytosis Not Reportable Macrocytosis Not Reportable Spherocytes Not Reportable Pappenheimer Bodies Not Reportable Sickle Cells Not Reportable Target Cells Not Reportable Tear Drop Cells Not Reportable Ovalocytes Not Reportable Helmet Cells Not Reportable Martinez-Harvel Bodies Not Reportable [place] Rings Not Reportable Van Cells Not Reportable Bite Cells Not Reportable Crenated Cell Not Reportable Elliptocytes Few Acanthocytes (Spur) Not Reportable Rouleaux Not Reportable Hemoglobin C Crystals Not Reportable Schistocytes Not Reportable Malaria parasites Not Reportable Alban Bodies Not Reportable Hem Pathologist Commnt No Sodium 138 Potassium 4.2 Chloride 100.6 Carbon Dioxide 24 Anion Gap 18 BUN 6 L Creatinine 0.5 L Estimated GFR > 60 BUN/Creatinine Ratio 12.00 Glucose 92 Calcium 8.6 Urine Color Urine Turbidity Urine pH Ur Specific [place] Urine Protein Urine Glucose (UA) Urine Ketones Urine Blood Urine Nitrite Urine Bilirubin Urine Urobilinogen Ur Leukocyte Esterase Urine WBC (Auto) Urine RBC (Auto) U Epithel Cells (Auto) Urine Opiates Screen Urine Methadone Screen Ur Barbiturates Screen Ur Phencyclidine Scrn Ur Amphetamines Screen U Benzodiazepines Scrn Urine Cocaine Screen U Marijuana (THC) Screen Drugs of Abuse Note Plasma/Serum Alcohol < 0.01 11/14/16 11/14/16 20:02 20:02 WBC RBC Hgb Hct MCV MCH MCHC RDW Plt Count Add Manual Diff Total Counted Seg Neutrophils % Seg Neuts % (Manual) Band Neutrophils % Lymphocytes % (Manual) Reactive Lymphs % (Man) Monocytes % (Manual) Eosinophils % (Manual) Basophils % (Manual) Metamyelocytes % Myelocytes % Promyelocytes % Blast Cells % Nucleated RBC % Seg Neutrophils # Man Band Neutrophils # Lymphocytes # (Manual) Abs React Lymphs (Man) Monocytes # (Manual) Eosinophils # (Manual) Basophils # (Manual) Metamyelocytes # Myelocytes # Promyelocytes # Blast Cells # WBC Morphology Hypersegmented Neuts Hyposegmented Neuts Hypogranular Neuts Smudge Cells Toxic Granulation Toxic Vacuolation Dohle Bodies Pelger-Huet Anomaly Carmen Rods Platelet Estimate Clumped Platelets Plt Clumps, EDTA Large Platelets Giant Platelets Platelet Satelliting Plt Morphology Comment RBC Morphology Dimorphic RBCs Polychromasia Hypochromasia Poikilocytosis Anisocytosis Microcytosis Macrocytosis Spherocytes Pappenheimer Bodies Sickle Cells Target Cells Tear Drop Cells Ovalocytes Helmet Cells Martinez-Harvel Bodies [place] Rings [place] Cells Bite Cells Crenated Cell Elliptocytes Acanthocytes (Spur) Rouleaux Hemoglobin C Crystals Schistocytes Malaria parasites Alban Bodies Hem Pathologist Commnt Sodium Potassium Chloride Carbon Dioxide Anion Gap BUN Creatinine Estimated GFR BUN/Creatinine Ratio Glucose Calcium Urine Color Straw Urine Turbidity Clear Urine pH 7.0 Ur Specific Henderson 1.003 Urine Protein <15 mg/dl Urine Glucose (UA) Neg Urine Ketones Neg Urine Blood Neg Urine Nitrite Neg Urine Bilirubin Neg Urine Urobilinogen < 2.0 Ur Leukocyte Esterase Neg Urine WBC (Auto) 1.0 Urine RBC (Auto) < 1.0 U Epithel Cells (Auto) 1.0 Urine Opiates Screen Presumptive negative Urine Methadone Screen Presumptive negative Ur Barbiturates Screen Presumptive negative Ur Phencyclidine Scrn Presumptive negative Ur Amphetamines Screen Presumptive negative U Benzodiazepines Scrn Presumptive negative Urine Cocaine Screen Presumptive negative U Marijuana (THC) Screen Presumptive negative Drugs of Abuse Note Disclamer Plasma/Serum Alcohol Critical care attestation.: If time is entered above; I have spent that time in minutes in the direct care of this critically ill patient, excluding procedure time. ED Disposition Clinical Impression: Uncontrolled hypertension Schizophrenia Qualifiers: Schizophrenia type: unspecified Qualified Code(s): F20.9 - Schizophrenia, unspecified Disposition: DISCHARGED TO HOME OR SELFCARE Is pt being admited?: No Does the pt Need Aspirin: No Condition: Stable Instructions: Hypertension (ED) Referrals: PRIMARY CARE, [Primary Care Provider] - 3-5 Days Time of Disposition: 10:09
[2016-11-14] MEDS ORDERED: ZESTRIL PO SCH (20:00)
[2016-11-14] MEDS ORDERED: ALUM-MAG HYDROX-SIMETH 200-200-20MG/5ML PO PRN (20:06)
[2016-11-14] MEDS ORDERED: MILK OF MAGNESIA PO PRN (20:06)
[2016-11-14] MEDS ORDERED: TYLENOL PO PRN (20:06)
[2016-11-14 20:18] LABS: Urine Drugs of Abuse Note Disclamer
[2016-11-14 20:28] LABS: Anion Gap 18 mmol/L; Blood Urea Nitrogen 6 mg/dL (7-17); Calcium 8.6 mg/dL (8.4-10.2); Carbon Dioxide 24 mmol/L (22-30); Chloride 100.6 mmol/L (98-107); Glucose 92 mg/dL (65-100); Potassium 4.2 mmol/L (3.6-5.0); Sodium 138 mmol/L (137-145)
[2016-11-14 20:33] LABS: Hematocrit 37.6 % (30.3-42.9); Hemoglobin 12.3 gm/dl (10.1-14.3); Mean Corpuscular HGB Conc 33 % (30-34); Mean Corpuscular Hemoglobin 31 pg (28-32); Mean Corpuscular Volume 95 fl (79-97); Platelet Count 208 K/mm3 (140-440); Red Blood Count 3.97 M/mm3 (3.65-5.03); Red Cell Distribution Width 14.5 % (13.2-15.2); White Blood Count 6.9 K/mm3 (4.5-11.0)
[2016-11-14 20:38] LABS: Bilirubin,Urine NEG (Negative); Blood,Urine NEG (Negative); Ketones,Urine NEG (Negative); Leukocyte Esterase,Urine NEG (Negative); Nitrite,Urine NEG (Negative); Protein,Urine <15 mg/dL mg/dL (Negative); RBC,Urine < 1.0 /HPF (0.0-6.0); Urobilinogen,Urine < 2.0 mg/dL (<2.0)
[2016-11-14] MEDS: BABY ASPIRIN PO SCH (21:18)
[2016-11-14] MEDS: LOPRESSOR PO SCH (21:18)
[2016-11-14 21:40] LABS: Basophils % (Manual) 0 % (0.0-1.8); Blastocytes % (Manual) 0 %
[2016-11-14 21:42] LABS: Diff Status Complete; Elliptocytes Few
[2016-11-14] MEDS ORDERED: NEURONTIN PO SCH (22:00)
[2016-11-14] MEDS ORDERED: ZOCOR PO SCH (22:00)
[2016-11-14] MEDS ORDERED: NON-FORMULARY (Risperidone [Risperdal] 4 MG) PO SCH (22:00)
[2016-11-14] MEDS: RisperDAL PO SCH (22:00)
[2016-11-14] MEDS: COLACE PO SCH (22:00)
[2016-11-15 09:14] VITALS: BP 131/89
[2016-11-15] MEDS: RisperDAL PO SCH (10:53)
[2016-11-15] MEDS: COLACE PO SCH (10:53)
[2016-11-15] MEDS: BABY ASPIRIN PO SCH (10:53)
[2016-11-15] MEDS: LOPRESSOR PO SCH (10:53)
== END 2016-11-15 10:56 | disposition home or self-care (01) ==
LOC: ED 15:44 → EEVIPCON 15:44 → ED 11-15 10:56
DX: F20.9 Schizophrenia, unspecified (principal); I10 Essential (primary) hypertension; E11.9 Type 2 diabetes mellitus without complications; J45.909 Unspecified asthma, uncomplicated; E03.9 Hypothyroidism, unspecified; E78.00 Pure hypercholesterolemia, unspecified; Z90.710 Acquired absence of both cervix and uterus; Z88.0 Allergy status to penicillin; Z88.8 Allergy status to other drugs, medicaments and biological substances
CPT/HCPCS: 36415; 80048; 80307; 81001; 85007; 85025; 99284; G0480; 80320